=== PATIENT | male | born 1975 | race African-American/Black ===

== ENCOUNTER 2021-11-05 06:10 | Emergency (ER) | payer SELFPAY ==
[~2021-11-05] VITALS: Ht 185.4 cm; Wt 106.8 kg
--- NOTE | 2021-11-05 06:20 | PHYS DOC ---
Past Medical History Past Medical History: High Cholesterol, Hypertension Past Medical History Alcohol use disorder Smoking Status: Current Every Day Smoker Alcohol Use: Heavy Drug Use: None General Adult HPI: HPI: Patient is a 46 year old male who presents with report of feeling like he is "detoxing" from alcohol. He reports his last alcoholic beverage was consumed yesterday afternoon. He reports that he has been drinking heavily and intermittently since he was a teenager. He had a period of time where he was sober for 10 months in the year of 2018. He reports that last week he was at [facility] and was given what sounds like a banana bag and some Ativan. He is unclear about the details of his ED visit, reports that he was not hospitalized, but is reportedly not offered detox services. He denies SI or HI symptoms. He admits that he has severe anxiety issues. He has severe and uncontrolled hypertension, he is supposed to take lisinopril and amlodipine, but he refuses to take these. He denies chest pain or dyspnea. He denies abdominal pain. He does report several episodes of intermittent nausea and vomiting symptoms. Denies hematemesis. Denies dizziness, fall, head injury, syncope or near syncope. He denies numbness, tingling, motor weakness. He denies use of illicit drugs. Denies seizure activity or history of alcohol withdrawal seizures. Review of Systems: Review of Systems: Constitutional: Denies fever or chills. [] Eyes: Denies change in visual acuity. [] HENT: Denies nasal congestion or sore throat. [] Respiratory: Denies cough or shortness of breath. [] Cardiovascular: Denies chest pain or edema. [] GI: Denies abdominal pain, reports intermittent nausea and vomiting symptoms. Denies bowel habit changes. : Denies urinary symptoms. Musculoskeletal: Denies back pain or joint pain. [] Integument: Denies rash. [] Neurologic: Denies headache, focal weakness or sensory changes. Denies fall, head injury, LOC or syncope. Psychiatric: Chronic anxiety and panic. Alcohol use disorder. Denies SI or HI. Heart Score: C/O Chest Pain: No Risk Factors: Risk Factors: DM, Current or recent (<one month) smoker, HTN, HLP, family history of CAD, obesity. Risk Scores: Score 0 - 3: 2.5% MACE over next 6 weeks - Discharge Home Score 4 - 6: 20.3% MACE over next 6 weeks - Admit for Clinical Observation Score 7 - 10: 72.7% MACE over next 6 weeks - Early Invasive Strategies Physical Exam: PE: Constitutional: Well developed, well nourished, no acute distress, non-toxic appearance. Anxious, not acutely ill-appearing. HENT: Normocephalic, atraumatic, oropharynx patent and clear, mucous membranes are moist Eyes: PERRL, EOMI, conjunctiva normal, no discharge. No scleral icterus. Neck: Normal range of motion, no tenderness, supple, no stridor. Trachea is midline Cardiovascular: Tachycardic, regular, +2 radial and +2 posterior tibial pulses bilaterally Lungs & Thorax: Clear to auscultation bilaterally without rales, rhonchi or wheezes. No evidence of respiratory distress Abdomen: Is obese, soft, nondistended, nontender to palpation. Normal bowel sounds. No palpable mass organomegaly. No CVA tenderness. No flank abdominal ecchymosis Skin: Warm, dry, no erythema, no rash. No jaundice. Back: No tenderness, no CVA tenderness. [] Extremities: No tenderness, no cyanosis, no clubbing, ROM intact, no edema. No calf tenderness Neurologic: Alert and oriented X 3, normal motor function, normal sensory function, no focal deficits noted. Ambulatory with a steady gait. Speech is clear and fluent. Psychologic: Affect is, he is cooperative. Denies SI or HI symptoms EKG: EKG: EKG is interpreted at 0649 Rhythm is sinus tachycardia Rate is 113 bpm [place] is right Occasional PVCs [facility] Radiology/Procedures: Radiology/Procedures: [] Course & Med Decision Making: Course & Med Decision Making Pertinent Labs and Imaging studies reviewed. (See chart for details) The patient is given IV banana bag and IV fluid bolus, normal saline. He is given IV Ativan. Blood pressure is modestly improved. Tachycardia is improved. He is currently manifesting no evidence of acute withdrawal. He is seen by PAT team. He does not wish to pursue detox services. He has a delicatessen goods stock clerk, he was scheduled to meet with her yesterday at a [facility], but the patient call and let her know that he could not come because he was intoxicated, then he apparently told his delicatessen goods stock clerk that he would drive and meet her there, but his delicatessen goods stock clerk told him not to drive while intoxicated. He has been linked with multiple outpatient services, mental health services and alcohol/substance abuse resources. He routinely fails to follow-up. I have discussed the findings, differential diagnosis and plan of care with him. I explained that it does not appear that his last alcoholic beverage intake was yesterday afternoon, as he still has alcohol in his system here this morning. I asked him again if he would like detox services. He reports that "I do not know what I want." He adamantly denies SI or HI symptoms. He has multiple resources at his disposal, he made contact with his delicatessen goods stock clerk here in the ER. I strongly encouraged him to follow-up with his primary care physician. I told him that he needs to start taking his medications. He confirmed with me multiple times that he has his medications at home, does not need refills or prescriptions for these medicines. I explained that if he does not start taking care of himself, taking his blood pressure medication, he will definitively experience endorgan damage, leading to permanent disability and/or . He verbalizes understanding. Return precautions are provided. Caden Disclaimer: Caden Disclaimer: This electronic medical record was generated, in whole or in part, using a voice recognition dictation system. Departure Departure Impression: Primary Impression: Alcohol use disorder Additional Impressions: Anxiety Uncontrolled hypertension Noncompliance Disposition: 01 HOME / SELF CARE / HOMELESS Condition: STABLE Patient Instructions: Alcohol Intoxication, Alcohol Problems, Anxiety and Panic Attacks, Hypertension, Substance Abuse-Brief Additional Instructions: You absolutely must start taking your blood pressure medication as directed by your primary care doctor. If your blood pressure continues to stay uncontrolled, you will sustain endorgan damage, such as brain injury, stroke, brain bleeding, heart attack, kidney failure or even . You have a delicatessen goods stock clerk, you should contact her in follow-up. It appears that she canceled your meeting with her yesterday secondary to intoxication. It is strongly recommend you contact her today to arrange for repeat follow-up. You also engaged in substance abuse resources, please contact them as directed. You may return to the ER at anytime, for any reason, if you sustain severe chest pain, severe abdominal pain, uncontrolled vomiting, dehydration, focal weakness, fall, head injury or any other concerns. You must not drive while under the flounce of alcohol, you must not drive while taking Ativan, so you must receive a ride home. I do not recommend that you drive at all for the rest of the day today. RAND WATKINS DO Nov 05, 2021 06:20
[2021-11-05] MEDS ORDERED: ONDANSETRON PF 4 MG/2 ML VIAL. IVP ONE (06:45)
[2021-11-05] MEDS ORDERED: MULTIVIT INFUSN,ADULT 4,VIT K 10 ML, THIAMINE INJ 100 MG, FOLIC ACID INJ 1 MG in IV NOR... IV ONE (06:45)
[2021-11-05 06:54] LABS: CALCIUM 9.4 mg/dL (8.5-10.1); GFR 97.3; POTASSIUM 4.2 mmol/L (3.5-5.1)
[2021-11-05 06:57] LABS: HYALINE CASTS, URINE FEW /HPF
[2021-11-05 06:58] LABS: BACTERIA,URINE FEW /HPF (0-FEW)
[2021-11-05 07:00] LABS: ALBUMIN 4.8 g/dL (3.4-5.0); ALBUMIN/GLOBULIN RATIO 1.4 (1.0-1.7); MAGNESIUM 1.8 mg/dL (1.8-2.4); TOTAL BILIRUBIN 0.5 mg/dL (0.2-1.0); TOTAL PROTEIN 8.3 g/dL (6.4-8.2)
[2021-11-05 07:01] LABS: BARBITURATES NEG (NEG); BENZODIAZEPINES NEG (NEG); CANNABINOIDS NEG (NEG); COCAINE NEG (NEG); METHADONE NEG (NEG); OPIATES NEG (NEG); PHENCYCLIDINE NEG (NEG)
[2021-11-05 07:04] LABS: BASO % 1 % (0-3); EOS # 0.1 x10^3/uL (0.0-0.7); EOS % 1 % (0-3); HEMATOCRIT 43.1 % (39.0-53.0); LYMPH # 1.9 x10^3/uL (1.0-4.8); LYMPH % 36 % (24-48); MEAN CORPUSCULAR HEMOGLOBIN 29 pg (25-35); MEAN CORPUSCULAR HGB CONC 32 g/dL (31-37); MEAN CORPUSCULAR VOLUME 90 fL (79-100); MONO # 0.4 x10^3/uL (0.0-1.1); MONO % 7 % (0-9); NEUT # 2.9 x10^3/uL (1.8-7.7); NEUT % 55 % (31-73); PLATELET COUNT 174 x10^3/uL (140-400); RED CELL DISTRIBUTION WIDTH 16.8 % (11.5-14.5); WHITE BLOOD COUNT 5.3 x10^3/uL (4.0-11.0)
[2021-11-05 07:13] LABS: AMPHETAMINE/METHAMPHETAMINE NEG (NEG)
--- NOTE | 2021-11-05 07:21 | EKG ---
[facility] [address] [place] [id number] Test Date: 2021-11-05 Test Time: 06:45:40 Pat Name: HAILY BELLA Department: Room: Gender: M [employer]: : [id number] Requested By: RAND WATKINS Order Number: [id number] Reading MD: Bismark Layton Measurements Intervals [place] Rate: 113 P: 165 [place]: 152 QRS: 181 QRSD: 86 T: 113 QT: 266 QTc: 369 Interpretive Statements SINUS TACHYCARDIA VENTRICULAR PREMATURE COMPLEX(ES) LEFT ATRIAL ABNORMALIT QRS(T) CONTOUR ABNORMALITY CONSIDER ANTEROSEPTAL MYOCARDIAL DAMAGE CONSISTENT WITH HIGH LATERAL INFARCT AGE UNDETERMINED T ABNORMALITY IN ANTERIOR LEADS ABNORMAL ECG RI6.02 No previous ECG available for comparison Electronically Signed On 11-07-2021 21:32:11 CDT by Bismark Layton
[2021-11-05] MEDS ORDERED: IV NORMAL SALINE 1000ML BAG 1,000 ML IV ONE (07:45)
[2021-11-05 08:54] VITALS: BP 211/123
== END 2021-11-05 09:21 | disposition home or self-care (01) ==
LOC: ER 06:10
DX: F10.20 Alcohol dependence, uncomplicated (principal); Y90.3 Blood alcohol level of 60-79 mg/100 ml; I10 Essential (primary) hypertension; F41.9 Anxiety disorder, unspecified; Z91.19 Patient's noncompliance with other medical treatment and regimen; F17.200 Nicotine dependence, unspecified, uncomplicated; E78.00 Pure hypercholesterolemia, unspecified
CPT/HCPCS: 36415; 80053; 80307; 81001; 83690; 83735; 85025; 93005; 96365; 96366; 96375; 99285; G0480; J2060; J2405; J3411; J3490; J7030